=== PATIENT | female | born 1960 | race Caucasian/White ===

== ENCOUNTER 2021-11-29 14:14 | Emergency (ER) | payer OTHER ==
[~2021-11-29 14:14] MED LIST: CYMBALTA20 MG PO; CYMBALTA60 MG PO; DULOXETINE HCL30 MG PO; FLONASE ALLER15.8 ML; LEXAPRO 10MG TA10 MG PO; LOPRESSOR50 MG PO; LYRICA25 M1 PO; NARCAN4 MG; NITROSTAT0.4 MG PO; NORCO 5-325 TA1 EAC1 PO; OXYCODONE HCL10 MG PO; OXYCODONE HCL15 M1 PO; OXYCODONE HCL15 MG PO; PREGABALIN25 MG PO; PRILOSEC20 MG PO; TRAZODONE 100M100 MG PO; VENTOLIN PO; WELLBUTRIN PO; XARELTO20 MG PO
[2021-11-29 16:00] LABS: BILIRUBIN NEGATIVE (NEGATIVE); BLOOD NEGATIVE Ery/uL (NEGATIVE); CLARITY CLEAR (CLEAR); COLOR YELLOW (YELLOW); GLUCOSE (U) NORMAL (NORMAL); LEUKOCYTES 1+ Leu/uL (NEGATIVE); NITRITE POSITIVE (NEGATIVE); PROTEIN NEGATIVE (NEGATIVE); SPECIFIC GRAVITY 1.025 (1.001-1.030); UROBILINOGEN 0.2 mg/dL (0.2-1.0)
[2021-11-29 16:13] LABS: BASOPHIL 0.3 % (0-2); EOSINOPHIL 0.4 % (0-5); HCT 41.5 % (37.0-47.0); HGB 14.3 g/dl (12.5-16.0); LYMPHOCYTE 8.2 % (15-48); MCHC 34.5 g/dL (32.0-36.0); MCV 87.2 fL (78.0-100.0); MONOCYTE 4.8 % (0-12); MPV 9.6 fL (6.0-9.5); NRBC 0; PLT 183 K/uL (150-400); RBC 4.76 M/uL (4.20-5.40); RDW 13.2 % (11.5-14.0); WBC 14.1 K/uL (4.0-10.5)
[2021-11-29 16:42] LABS: INR 1.04 (0.9-1.2); PTT 30.3 SECONDS (24.4-34.7)
[2021-11-29 16:44] LABS: ALBUMIN 3.8 g/dL (3.4-5.0); BILIRUBIN - TOTAL 0.7 mg/dL (0.2-1.0); BUN/CREAT RATIO (CALC) 20.4 RATIO; CREATININE 0.93 mg/dL (0.51-0.95); FT4 (FREE T4) 1.2 ng/dL (0.76-1.46); GLOBULIN (CALCULATION) 3.7 g/dL; MAGNESIUM 2.1 mg/dL (1.8-2.4); POTASSIUM 4.5 mmol/L (3.5-5.1); TOTAL PROTEIN 7.5 g/dL (6.4-8.2)
[2021-11-29 16:56] LABS: BACTERIA 4+; SQUAMOUS EPITHELIAL CELLS 20-50
[2021-11-29] MEDS ORDERED: ONDANSETRON ODT4 MG PO (18:46)
[2021-11-29] MEDS ORDERED: XARELTO20 MG PO (18:46)
[2021-11-29] MEDS ORDERED: CIPRO500 MG PO (18:46)
[2021-11-29] MEDS ORDERED: TOPROL XL 50 MG50 MG PO (18:47)
== END 2021-11-29 19:30 | disposition home or self-care (01) ==
LOC: FER 14:14
PROVIDERS: Emergency Medicine
DX: I48.91 Unspecified atrial fibrillation (principal); N39.0 Urinary tract infection, site not specified; Z87.891 Personal history of nicotine dependence; Z88.0 Allergy status to penicillin; Z20.822 Contact with and (suspected) exposure to COVID-19; Z28.310 Unvaccinated for COVID-19
CPT/HCPCS: 36415; 71250; 80053; 81001; 83735; 83880; 84145; 84439; 84443; 84484; 85025; 85610; 85730; 93005; J0696; J7030; U0002